=== PATIENT | male | born 1990 | race Caucasian/White ===

== ENCOUNTER 2017-11-04 01:06 | Emergency (ER) | payer MEDICAID ==
[2017-11-04] MEDS: ALBUTEROL 0.5% (NEB) 2.5 MG/0.5 ML AMP INH (01:42)
[2017-11-04] MEDS: IPRATROPIUM (NEB) 0.5 MG/2.5 ML AMP NEB ×2 (01:42→03:24)
[2017-11-04] MEDS: METHYLPREDNISOLONE 125 MG INJ IM (01:52)
[2017-11-04] MEDS: ALBUTEROL 0.083% (NEB) 2.5 MG/3 ML AMP NEB (03:24)
== END 2017-11-04 04:16 | disposition home or self-care (01) ==
LOC: FTE 01:06
DX: J20.9 Acute bronchitis, unspecified (principal)
CPT/HCPCS: 71045; 94644; 94645; 96372; 99284-25